=== PATIENT | male | born 1990 | race African-American/Black ===

== ENCOUNTER → 2018-03-02 | Emergency (ER) | payer OTHER ==
[2018-03-02 02:03] VITALS: BP 133/85; PULSE 72; TEMP 98.6; BMI 24.5
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
== END | disposition home or self-care (01) ==
LOC: JER 00:15
PROC: 0RSUXZZ Reposition Right Metacarpophalangeal Joint, External Approach (ICD-10-PCS; principal; 2018-03-02)
PROC: 2W3GX1Z Immobilization of Right Thumb using Splint (ICD-10-PCS; 2018-03-02)
DX: S63.114A Dislocation of metacarpophalangeal joint of right thumb, initial encounter (principal); V23.4XXA Motorcycle driver injured in collision with car, pick-up truck or van in traffic accident, initial encounter; Y92.414 Local residential or business street as the place of occurrence of the external cause; Y93.89 Activity, other specified; Y99.8 Other external cause status
CPT/HCPCS: 73130-TC-RT-FY; 99282-25

== ENCOUNTER 2018-10-26 13:23 | Emergency (ER) | payer OTHER ==
[2018-10-26 13:38] VITALS: BP 125/69; PULSE 76; TEMP 98.5
--- NOTE | 2018-10-26 14:02 | PDOC ---
History of Present Illness - General Chief Complaint: Respiratory Stated Complaint: BLOOD IN SPUTUM Time Seen by Provider: 10/26/18 13:49 History Source: Patient Exam Limitations: No Limitations - History of Present Illness Initial Comments: 10/26/18 13:59 HISTORY OF PRESENT ILLNESS: This a 27-year-old male denies medical history presents emergency department for evaluation of one episode of blood-tinged sputum while coughing. Patient reports he woke up early in the morning felt dry in his nose and throat that had one episode where he coughed and noted a little bit of blood streaks in the sputum. Patient reports he has coughed multiple times since then which is been clear phlegm. Patient denies any sore throat but does report nasal congestion. Doesn't use an air conditioner but he sleeps in a warm room which he states feels like a dry environment. No recent travel or sick contacts. PAST MEDICAL HISTORY: Denies past medical history SURGICAL HISTORY: Denies ALLERGIES: No known drug allergies REVIEW OF SYSTEMS General/Constitutional: Denies weakness, weight change. HEENT: Denies change in vision. Denies ear pain or discharge. +sore throat. Cardiovascular: Denies chest pain or shortness of breath. Respiratory: Moist productive cough. Denies wheezing, or hemoptysis. Gastrointestinal: Denies nausea, vomiting, diarrhea or constipation. Denies rectal bleeding. Genitourinary: Denies dysuria, frequency, or change in urination. Musculoskeletal: Denies neck or back pain. Skin and breasts: Denies rash or easy bruising. Neurologic: Denies headache, vertigo, loss of consciousness, or loss of sensation. Psychiatric: Denies depression or anxiety. Endocrine: Denies increased thirst. Denies abnormal weight change. Hematologic/Lymphatic: Denies anemia, easy bleeding, or history of blood clots. Allergic/Immunologic: Denies hives or skin allergy. Denies latex allergy. PHYSICAL EXAM General Appearance: Well-appearing, appropriately dressed. No apparent distress , no intoxication. HEENT: EOMI, PERRLA, normal voice, TMs retracted bilaterally. No conjunctival pallor. No photophobia, scleral icterus. Oropharynx erythematous without lesions or exudate. Cobblestoning noted in the posterior. No nasal discharge present. Neck: Supple. Trachea midline. No tenderness, rigidity, carotid bruit, stridor , or thyromegaly. Nontender anterior cervical lymphadenopathy present. Respiratory/Chest: Lungs CTAB. No shortness of breath, chest tenderness, respiratory distress, accessory muscle use. No crackles, rales, rhonchi, stridor , wheezing, dullness Cardiovascular: RRR. S1, S2. No JVD, murmur, bradycardia, tachycardia. Vascular Pulses: Dorsalis-Pedis (R): 2+, Dorsalis-Pedis (L): 2+ Gastrointestinal/Abdominal: Normal bowel sounds. Abdomen soft, non-distended. No tenderness or rebound tenderness. No organomegaly, pulsatile mass, guarding, hernia, hepatomegaly, splenomegaly. Musculoskeletal/Extremities: Normal inspection. FROM of all extremities, normal capillary refill. Pelvis Stable. No CVA tenderness. No tenderness to extremities, pedal edema, swelling, erythema or deformity. Integumentary: Appropriate color, dry, warm. No cyanosis, erythema, jaundice or rash Neurologic: ceramic plater II-XII intact. Fully oriented, alert. Appropriate mood/affect. Motor strength 5/5. No appreciable EOM palsy, facial droop or sensory deficit. Past History - Past Medical History Allergies/Adverse Reactions: Allergies Allergy/AdvReac Type Severity Reaction Status Date / Time No Known Drug Allergies Allergy Verified 10/26/18 13:38 nuts Allergy Uncoded 10/26/18 13:38 Home Medications: Ambulatory Orders Albuterol Sulfate Inhaler - [Ventolin Hfa Inhaler -] 1 - 2 inh PO Q4H PRN #1 inhaler 06/08/17 Loratadine [Claritin -] 10 mg PO DAILY #30 tablet 06/08/17 Prednisone [Deltasone] 40 mg PO DAILY #6 tablet 06/08/17 Asthma: Yes COPD: No - Immunization History Immunization Up to Date: Yes - Suicide/Smoking/Psychosocial Hx Smoking History: Never smoked Have you smoked in the past 12 months: No Number of Cigarettes Smoked Daily: 0 Hx Alcohol Use: No Drug/Substance Use Hx: No Substance Use Type: None *Physical Exam - Vital Signs Last Vital Signs Temp Pulse Resp BP Pulse Ox 98.5 F 76 18 125/69 99 10/26/18 13:35 10/26/18 13:35 10/26/18 13:35 10/26/18 13:35 10/26/18 13:35 Medical Decision Making - Medical Decision Making 10/26/18 14:01 A/P: 27-year-old male with upper respiratory type illness Symptomatic treatment is been discussed with the patient is verbalized understanding I will discharge the patient home with strict return precautions. Portions of this note have been documented using voice recognition software. As a result, errors may occur in the hot die press feeder process. Effort has been made to correct all grammatical and hot die press feeder error, but some may have been missed. *DC/Admit/Observation/Transfer Diagnosis at time of Disposition: URI (upper respiratory infection) Qualifiers: URI type: unspecified viral URI Qualified Code(s): J06.9 - Acute upper respiratory infection, unspecified - Discharge Dispostion Disposition: HOME Condition at time of disposition: Stable Decision to Admit order: No - Referrals Referrals: Jayson Vann [Primary Care Provider] - - Patient Instructions Additional Instructions: Rest, drink lots of fluids: Teas, water, soups, Pedialyte Saltwater gargles Steamy showers/seem to face break up mucus Avoid contact with others until fevers and cough resolved Lots of handwashing and good hygiene Continue [id number] medications for symptomatic relief Tylenol or Motrin for fever and pain Followup with private physician in one to 2 days as needed Return to emergency department for worsened symptoms, fevers, dehydration - Post Discharge Activity
== END 2018-10-26 14:02 | disposition home or self-care (01) ==
LOC: JERFT 13:23
DX: J06.9 Acute upper respiratory infection, unspecified (principal); B97.89 Other viral agents as the cause of diseases classified elsewhere
CPT/HCPCS: 99281-25

== ENCOUNTER 2020-02-18 01:29 | Emergency (ER) | payer OTHER ==
[2020-02-18 01:57] VITALS: BP 130/50; PULSE 63; BMI 26.5
[2020-02-18 02:11] VITALS: TEMP 98.2
[2020-02-18] MEDS ORDERED: DEXAMETHASONE SOD PHOSPHATE 10 MG/1 ML VIAL PO ONE (02:15)
[2020-02-18] MEDS ORDERED: DEXAMETHASONE SOD PHOSPHATE 10 MG/1 ML VIAL ONE (02:34)
== END 2020-02-18 02:50 | disposition home or self-care (01) ==
LOC: JER 01:29
DX: J02.9 Acute pharyngitis, unspecified (principal)
CPT/HCPCS: 87070; 87880; 99283-25; J1100

== ENCOUNTER 2024-12-21 21:33 | Emergency (ER) | payer OTHER ==
[2024-12-21 21:38] VITALS: PULSE 81; TEMP 98.2; BMI 27.4
[2024-12-21] MEDS ORDERED: ACETAMINOPHEN 1000 MG/100 ML BAG IVPB ONE (21:57)
[2024-12-21] MEDS ORDERED: DOXYCYCLINE PO ONE (21:57)
[2024-12-21] MEDS ORDERED: DOXYCYCLINE HYCLATE 100 MG TABLET PO ONE (22:13)
[2024-12-21] MEDS ORDERED: ACETAMINOPHEN INJECTION 100 ML ONE (22:13)
[2024-12-21] MEDS ORDERED: LIDOCAINE HCL/PF 1% SDV 5ML VIAL ONE (22:16)
[2024-12-21] MEDS ORDERED: ACETAMINOPHEN 500 MG TABLET (FP) ONE (22:20)
[2024-12-21] MEDS ORDERED: KETOROLAC TROMETHAMINE 15 MG/ML VIAL ONE (22:21)
[2024-12-21] MEDS ORDERED: TAMSULOSIN HCL 0.4 MG CAP ONE (22:21)
[2024-12-21] MEDS: TAMSULOSIN HCL 0.4 MG CAP PO ONE (22:36)
[2024-12-21] MEDS: ACETAMINOPHEN 500 MG TABLET (FP) PO ONE (22:36)
[2024-12-21] MEDS: SODIUM CHLORIDE 1,000 ML IV STA (22:36)
[2024-12-21] MEDS: KETOROLAC TROMETHAMINE 15 MG/ML VIAL IVPUSH ONE (22:36)
[2024-12-21 22:43] LABS: ABSOLUTE IMMATURE GRANULOCYTES 0.05 x10^3/uL (0.0-0.031); BASOPHILS # 0.09 x10^3/uL (0.01-0.08); EOSINOPHIL % 6.1 % (0.8-7.0); EOSINOPHILS # 0.59 x10^3/uL (0.04-0.54); MCHC 32.3 g/dl (32.3-36.5); MEAN CELL VOLUME 78.7 fl (79.0-92.2); MEAN PLT VOLUME 8.9 fl (9.4-12.4); MONOCYTE # 0.88 x10^3/uL (0.30-0.82); MONOCYTE % 9.0 % (5.3-12.2); RDW 14.3 % (12.0-15.6)
[2024-12-21 22:58] LABS: URINE APPEARANCE CLOUDY; URINE BILIRUBIN NEGATIVE (NEGATIVE); URINE COLOR YELLOW; URINE GLUCOSE (UA) NEGATIVE (NEGATIVE); URINE KETONE NEGATIVE (NEGATIVE); URINE NITRITE NEGATIVE (NEGATIVE); URINE PROTEIN 3+ (NEGATIVE); URINE UROBILINOGEN 1.0 mg/dL (0.2-1.0)
[2024-12-21 23:04] LABS: URINE LEUK ESTERASE 3+ (NEGATIVE)
[2024-12-21 23:11] LABS: GLUCOSE,RANDOM 97.0 mg/dL (74-106)
[2024-12-21 23:12] LABS: TOT PROT 7.4 g/dl (6.4-8.2)
[2024-12-21 23:13] LABS: CO2 24.0 mmol/L (21-32)
[2024-12-21 23:14] LABS: ALK PHOS 115.0 U/L (40-150)
[2024-12-21 23:17] LABS: CREATININE 1.18 mg/dL (0.55-1.3); SGOT/AST 43.0 U/L (5-34); SGPT/ALT 14.0 U/L (0-55)
[2024-12-21 23:40] VITALS: BP 124/79; RESP 16
[2024-12-21] MEDS ORDERED: CEFTRIAXONE 1 GM/50 ML BAG ONE (23:42)
[2024-12-22] MEDS: CEFTRIAXONE 1,000 MG in DEXTROSE 5%-WATER - 50 ML IVPB ONE
== END 2024-12-22 00:04 | disposition home or self-care (01) ==
LOC: JER 21:33
PROC: 3E03329 Introduction of Other Anti-infective into Peripheral Vein, Percutaneous Approach (ICD-10-PCS; principal; 2024-12-22)
PROC: 3E0333Z Introduction of Anti-inflammatory into Peripheral Vein, Percutaneous Approach (ICD-10-PCS; 2024-12-22)
PROC: 3E0337Z Introduction of Electrolytic and Water Balance Substance into Peripheral Vein, Percutaneous Approach (ICD-10-PCS; 2024-12-22)
DX: R30.0 Dysuria (principal); N39.0 Urinary tract infection, site not specified
CPT/HCPCS: 36415; 76775-TC; 80053; 81003; 85025; 87086; 87491; 87591; 87661; 99285-25